=== PATIENT | male | born 1990 | race Caucasian/White ===

== ENCOUNTER 2021-03-10 23:07 | Emergency (ER) | payer MEDICAID ==
[~2021-03-10] VITALS: Ht 175.3 cm; Wt 77.0 kg
[2021-03-10] MEDS ORDERED: NALOXONE HCL 1 MG/ML 2ML VIAL IV ONE (23:30)
[2021-03-10 23:55] LABS: CHLORIDE 107 mEq/L (98-107)
[2021-03-11] LABS: ETHANOL BLOOD < 10 mg/dL
[2021-03-11 00:14] LABS: HEMATOCRIT. 45.4 % (42.0-52.0); HEMOGLOBIN. 15.9 g/dL (14.0-18.0); LYMPHOCYTES % 33.7 % (20.0-50.0); MEAN PLATELET VOLUME 7.8 fl (7.4-10.4); MONOCYTES % 7.4 % (2.0-8.0); NEUTROPHILS % 54.9 % (40.0-76.0); PLATELET 204 x1000/uL (130-400); RED BLOOD CELL COUNT 5.28 mill/uL (4.7-6.1); RED CELL DISTRIBUTION WIDTH 13.8 % (11.6-14.6)
[2021-03-11 01:04] LABS: CLARITY URINE CLEAR (CLEAR); COLOR URINE YELLOW (YELLOW); KETONES URINE NEGATIVE (NEGATIVE); LEUKOCYTE ESTERASE URINE 1+ (NEGATIVE); NITRITE URINE NEGATIVE (NEGATIVE); OCCULT BLOOD URINE TRACE (NEGATIVE); PH URINE 5.5 (4.5-8.0); PROTEIN URINE NEGATIVE (NEGATIVE); SPECIFIC GRAVITY URINE 1.032 (1.005-1.030)
[2021-03-11 01:20] LABS: *AMPHETAMINES SCREEN URINE PRESUMTIVE POSITIVE (NEGATIVE); *BARBITURATES SCREEN URINE NEGATIVE (NEGATIVE); *BENZODIAZEPINES SCREEN URINE NEGATIVE (NEGATIVE); *COCAINE SCREEN URINE NEGATIVE (NEGATIVE)
[2021-03-11 01:21] LABS: CANNABINOID URINE SCREEN NEGATIVE (NEGATIVE); METHADONE URINE SCREEN NEGATIVE (NEGATIVE); OPIATES URINE SCREEN NEGATIVE (NEGATIVE); PHENCYCLIDINE URINE SCREEN NEGATIVE (NEGATIVE)
[2021-03-11] MEDS ORDERED: CEFTRIAXONE 1 G PREMIX 50 ML IV SCH (05:45)
[2021-03-11] MEDS ORDERED: DOXY100C42 MT (13:11)
[2021-03-11] MEDS ORDERED: CEFTRIAXONE SODIUM 500 MG/VIAL IM ONE (13:15)
[2021-03-11] MEDS ORDERED: DOXYCYCLINE HYCLATE 100MG CAPSULE PO NR (13:30)
[2021-03-11 14:04] VITALS: BP 119/84
== END 2021-03-11 14:17 | disposition home or self-care (01) ==
LOC: ER 23:11 → EDBD 23:11 → ER 03-11 14:17
DX: T43.621A Poisoning by amphetamines, accidental (unintentional), initial encounter (principal); T40.991A Poisoning by other psychodysleptics [hallucinogens], accidental (unintentional), initial encounter; G92 Toxic encephalopathy; N39.0 Urinary tract infection, site not specified; Y92.488 Other paved roadways as the place of occurrence of the external cause
CPT/HCPCS: 36415; 70450; 80053; 80305; 80320; 81003; 85025; 87086; 96365; 96375; 99285; J0696; J2310; Z7610; G0480

== ENCOUNTER 2021-12-07 12:10 | Emergency (ER) | payer MEDICAID ==
[~2021-12-07] VITALS: Ht 167.6 cm; Wt 82.0 kg
[~2021-12-07 12:10] MED LIST: DOXY-326 MT
[2021-12-07] MEDS ORDERED: IBUPROFEN 600MG TABLET PO ONE (14:30)
[2021-12-07] MEDS ORDERED: CLIN300C12 MT ×2 (14:48)
[2021-12-07] MEDS ORDERED: LACT1CAP63 MT ×2 (14:48)
[2021-12-07] MEDS ORDERED: TOPUD MT ×3 (14:49→15:43)
[2021-12-07] MEDS ORDERED: NAP5EC MT (15:42)
[2021-12-07 16:15] VITALS: BP 135/73
== END 2021-12-07 16:15 | disposition home or self-care (01) ==
LOC: ER 12:10
DX: S20.212A Contusion of left front wall of thorax, initial encounter (principal); R07.81 Pleurodynia; Y08.89XA Assault by other specified means, initial encounter; Y93.89 Activity, other specified; Y92.9 Unspecified place or not applicable
CPT/HCPCS: 71101; 99283

== ENCOUNTER 2024-12-10 17:42 | Emergency (ER) | payer MEDICAID ==
[~2024-12-10] VITALS: Ht 167.6 cm; Wt 86.0 kg
[~2024-12-10 17:42] MED LIST changes: -DOXY-326 MT; +DOXY100C74 MT; +NAPR-1495 MT; +TOPUD MT
[2024-12-10 17:45] VITALS: BP 116/74; PULSE 111; RESP 16; TEMP 36.4; O2SAT 100
== END 2024-12-10 19:27 | disposition left against medical advice (07) ==
LOC: ER 17:42
DX: H92.02 Otalgia, left ear (principal); Z53.21 Procedure and treatment not carried out due to patient leaving prior to being seen by health care provider